=== PATIENT | female | born 2000 | race Two or more races ===

== ENCOUNTER 2022-01-10 14:16 | Outpatient (CLI) | payer OTHER ==
--- NOTE | 2022-01-10 16:21 | MRI Report ---
PROCEDURE: Shoulder LT W/O INDICATIONS: LEFT SHOULDER INSTABILTY TECHNIQUE: Noncontrast oblique coronal T2 fast spin echo with fat saturation, oblique sagittal T1 spin echo and T2 fast spin echo with fat saturation, axial T1 spin echo and T2 fast spin echo with fat saturation t hrough the shoulder. COMPARISON: None. FINDINGS: Image quality: Excellent. Rotator cuff: Low grade articular and bursal surface partial-thickness tear involving distal supraspi natus at its insertion on humeral head is seen extending to muscular tendinous junction. Distal infra spinatus and subscapularis tendons are intact. No rotator cuff tendon rupture. No rotator cuff muscle atrophy on sagittal images. Bones and bursae: No bone marrow contusions or fractures. No acromioclavicular joint degeneration. The acromion demonstrates conventional anatomy, without an os acromiale. Trace amount of subacromial subdeltoid bursal fluid is seen. Capsule and soft tissues: In the absence of intra-articular contrast, the labrum and glenohumeral li gaments appear intact. The long head of the biceps tendon appears thickened intra-articularly. The r otator interval appears normal, without fibrosis. The coracohumeral ligament is normal in thickness. IMPRESSION: 1. Low-grade articular and bursal surface partial-thickness tear at its insertion on humeral head ext ending to muscular tendinous junction. No full-thickness rotator cuff tendon rupture. 2. Tendinosis involving proximal intra-articular portion of long head of biceps. 3. No marrow edema. No fracture or dislocation. Trace amount of subacromial subdeltoid bursal fluid. 4. No definite focal labral tear. Reviewed by: Jose Miguel Medrano MD on 01/10/2022 4:20 PM PDT Approved by: Jose Miguel Medrano MD on 01/10/2022 4:20 PM PDT Station ID: [id number]
== END 2022-01-10 14:17 | disposition home or self-care (01) ==
LOC: DI 14:16
PROVIDERS: ATTEND Student in an Organized Health Care Education/Training Program
DX: M75.112 Incomplete rotator cuff tear or rupture of left shoulder, not specified as traumatic (principal); M67.922 Unspecified disorder of synovium and tendon, left upper arm